=== PATIENT | female | born 1965 | race American Indian/Alaskan Native ===

== ENCOUNTER 2017-02-12 16:33 | Emergency (ER) | payer MEDICAID ==
[2017-02-12 17:19] LABS: Basophils % (Auto) 0.9 % (0.0-1.8); Eosinophils % (Auto) 0.3 % (0.0-4.3); Hematocrit 38.1 % (30.3-42.9); Hemoglobin 13.1 gm/dl (10.1-14.3); Mean Corpuscular HGB Conc 35 % (30-34); Mean Corpuscular Hemoglobin 35 pg (28-32); Mean Corpuscular Volume 101 fl (79-97); Platelet Count 160 K/mm3 (140-440); Red Blood Count 3.79 M/mm3 (3.65-5.03); Red Cell Distribution Width 14.5 % (13.2-15.2); White Blood Count 5.9 K/mm3 (4.5-11.0)
[2017-02-12 17:25] LABS: Urine Drugs of Abuse Note Disclamer
[2017-02-12 17:32] LABS: Anion Gap 24 mmol/L; Blood Urea Nitrogen 10 mg/dL (7-17); Calcium 9.2 mg/dL (8.4-10.2); Carbon Dioxide 22 mmol/L (22-30); Chloride 93.4 mmol/L (98-107); Glucose 85 mg/dL (65-100); Potassium 3.4 mmol/L (3.6-5.0); Sodium 136 mmol/L (137-145)
[2017-02-12] MEDS ORDERED: BOOSTRIX IM ONE (17:42)
[2017-02-12 17:44] LABS: Bacteria,Urine 1+ /HPF (Negative); Bilirubin,Urine NEG (Negative); Blood,Urine NEG (Negative); Ketones,Urine NEG (Negative); Leukocyte Esterase,Urine NEG (Negative); Nitrite,Urine NEG (Negative); Protein,Urine <15 mg/dL mg/dL (Negative); Urobilinogen,Urine < 2.0 mg/dL (<2.0)
--- NOTE | 2017-02-12 17:45 | Emergency Department Report ---
ED Psych HPI - General Chief Complaint: Psych Stated Complaint: MH Time Seen by Provider: 02/12/17 17:30 Source: police Mode of arrival: Ambulatory - History of Present Illness Initial Comments: Patient is a 52-year-old female, poor historian, presenting to the ER status post suicide attempt. Patient reports to cutting her left wrist numerous times with a razor blade in attempts to hurt herself. Patient reports she wanted her to mention that reside in her living complex in an attempt not to hurt them she started to hurt herself. Patient has a long history of psychiatric illness and has cut herself in the past. Patient denies hallucinations or delusions. Patient pushes take medications but she cannot recall her medications. Otherwise no other complaints - Related Data Home Medications Medication Instructions Recorded Confirmed Last Taken No Known Home Medications [No 07/08/16 07/08/16 Unknown Reported Home Medications] Allergies Allergy/AdvReac Type Severity Reaction Status Date / Time Unable to Assess Allergy Unverified 07/07/16 20:02 ED Review of Systems ROS: Stated complaint: MH Other details as noted in HPI Comment: All other systems reviewed and negative ED Past Medical Hx - Past Medical History Hx Hypertension: Yes Hx Psychiatric Treatment: Yes (depression) - Social History Smoking Status: Current Every Day Smoker Substance Use Type: Alcohol - Medications Home Medications: Home Medications Medication Instructions Recorded Confirmed Last Taken Type No Known Home Medications [No 07/08/16 07/08/16 Unknown History Reported Home Medications] ED Physical Exam - General Limitations: Other (poor historian) General appearance: alert, in no apparent distress - Head Head exam: Present: atraumatic, normocephalic - Eye Eye exam: Present: normal appearance - ENT ENT exam: Present: mucous membranes moist - Neck Neck exam: Present: normal inspection - Respiratory Respiratory exam: Present: normal lung sounds bilaterally. Absent: respiratory distress - Cardiovascular Cardiovascular Exam: Present: regular rate, normal rhythm. Absent: systolic murmur, diastolic murmur, rubs, gallop - GI/Abdominal GI/Abdominal exam: Present: soft, normal bowel sounds - Extremities Exam Extremities exam: Present: full ROM, other (L wrist: approximately 15 superficial lacerations, R wrist: scars from prior cutting episodes) - Back Exam Back exam: Present: normal inspection - Neurological Exam Neurological exam: Present: alert, CN II-XII intact, normal gait. Absent: motor sensory deficit - Psychiatric Psychiatric exam: Present: depressed, flat affect, suicidal ideation - Skin Skin exam: Present: warm, dry, normal color. Absent: rash ED Course Vital Signs 02/12/17 02/12/17 02/13/17 17:57 17:58 10:00 Temperature 98.3 F 98.1 F Pulse Rate 80 84 Respiratory 16 16 16 Rate Blood Pressure 99/69 101/68 [Right] O2 Sat by Pulse 100 100 100 Oximetry ED Medical Decision Making - Lab Data Result diagrams: 02/12/17 17:01 02/12/17 17:01 - Medical Decision Making Potassium repleted 40meq Left wrist cleansed and irrigated, no lacerations to be sutures, bacitracin and dressing applied Psych consult appreciated. Pt has a h/o HIV and requires her home meds prior to IP treatment. Pt to be transferred to [facility] Critical care attestation.: If time is entered above; I have spent that time in minutes in the direct care of this critically ill patient, excluding procedure time. ED Disposition Clinical Impression: Suicidal intent, Laceration of wrist Disposition: [id number] PSY HOSP/PSY UNIT Is pt being admited?: No Condition: Stable
[2017-02-12] MEDS ORDERED: K-DUR PO ONE (18:54)
[2017-02-12] MEDS: ANTIBIOTIC OINT TP SCH (23:15)
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
[2017-02-13] MEDS: ANTIBIOTIC OINT TP SCH (11:44)
[2017-02-13 15:55] VITALS: BP 101/68
[2017-02-13 17:13] LABS: HIV-1 Antigen p24 Non React (Non React); HIVR-1/2 Ab Reactive (Non React)
== END 2017-02-13 20:20 ==
LOC: ED 16:33
DX: S61.512A Laceration without foreign body of left wrist, initial encounter (principal); R45.851 Suicidal ideations; F32.9 Major depressive disorder, single episode, unspecified; I10 Essential (primary) hypertension; F17.200 Nicotine dependence, unspecified, uncomplicated; X78.1XXA Intentional self-harm by knife, initial encounter; Y93.89 Activity, other specified; Y92.89 Other specified places as the place of occurrence of the external cause; Y99.8 Other external cause status
CPT/HCPCS: 36415; 80048; 80307; 81001; 84703; 85025; 86689; 87806; 90471; 90715; 99285; G0480; 80320